=== PATIENT | female | born 1945 | race Caucasian/White ===

== ENCOUNTER 2020-11-05 10:22 | Outpatient (CLI) | payer MEDICARE ==
[2020-11-05] MEDS ORDERED: Magnevist 469MG/ML 20 ML VIAL ONE (14:13)
== END 2020-11-05 10:23 | disposition home or self-care (01) ==
LOC: MRI 10:22
PROVIDERS: ATTEND Radiology Radiation Oncology
DX: D32.0 Benign neoplasm of cerebral meninges (principal)
CPT/HCPCS: 70553; 77334; 82565; A9579

== ENCOUNTER 2022-01-14 12:21 | Outpatient (CLI) | payer MEDICARE | END 2022-01-14 12:22 | disposition home or self-care (01) | LOC: CT 12:21 | PROVIDERS: ATTEND Neurological Surgery | DX: D33.2 Benign neoplasm of brain, unspecified (principal); G93.6 Cerebral edema | CPT/HCPCS: 70470; 82565 ==

== ENCOUNTER 2022-01-29 11:42 | Outpatient (CLI) | payer MEDICARE ==
[2022-01-29 13:06] LABS: Hemoglobin 13.7 g/dL (12.0-15.5); Mean Corpuscular HGB CONC 33.3 g/dL (32.0-36.0); Mean Corpuscular Hemoglobin 29.5 pg (27.0-33.0); Mean Corpuscular Volume 88.6 fl (81.6-98.3); Mean Platelet Volume 9.5 fl (7.4-10.4); Platelet Count 269 10x3/uL (150-450); RBC Distribution Width 12.6 % (11.5-14.5); Red Blood Cell (RBC) Count 4.65 10x6/uL (3.90-5.03); White Blood Cell (WBC) Count 8.6 10x3/uL (3.5-10.5)
[2022-01-29 13:21] LABS: Anion Gap 15 mmol/L (10-20); BUN (Urea Nitrogen) 22 mg/dL (9.8-20.1); Calc. Creatinine Clearance 0 mL/min (70-130); Calcium 9.8 mg/dL (7.8-10.44); Carbon Dioxide 28 mmol/L (23-31); Chloride 104 mmol/L (98-107); Glucose 82 mg/dL (83-110); Potassium 3.7 mmol/L (3.5-5.1); Sodium 143 mmol/L (136-145)
[2022-01-29 13:37] LABS: INR-International Normal Ratio 0.9; PTT 25.5 sec (22.0-33.0); Prothrombin Time 10.3 sec (9.5-12.1)
[2022-01-30 02:04] LABS: SARS-CoV-2 PCR by NAA Not Detected (NotDetected)
== END 2022-01-29 11:43 | disposition home or self-care (01) ==
LOC: LABBT 11:42
PROVIDERS: ATTEND Neurological Surgery
DX: Z01.818 Encounter for other preprocedural examination (principal); D33.2 Benign neoplasm of brain, unspecified; Z20.822 Contact with and (suspected) exposure to COVID-19
CPT/HCPCS: 80048; 85027; 85610; 85730; 93005; U0003; U0005; 93010

== ENCOUNTER 2022-01-29 11:45 | Inpatient (IN) | payer MEDICARE ==
[2022-02-02] MEDS ORDERED: Neomycin-Polymyxin 1 ML AMP ONE ×2 (06:10→09:18)
[2022-02-02] MEDS ORDERED: Bacitracin Zinc Ointment 30 gm TUBE ONE (06:10)
[2022-02-02] MEDS ORDERED: Thrombin 5000 UNITS/5 ML VIAL ONE (06:10)
[2022-02-02] MEDS ORDERED: Lidocaine 0.5%/Epinephrine 1:200,000 50 ml Vial ONE (06:10)
[2022-02-02] MEDS ORDERED: fentaNYL Citrate/PF 100 MCG/2 ML SYRINGE ONE ×2 (06:32→12:01)
[2022-02-02] MEDS ORDERED: Albumin 5% 0 ML ONE (06:33)
[2022-02-02] MEDS ORDERED: Propofol 1,000 MG/100 ML VIAL IV ONE (06:33)
[2022-02-02] MEDS ORDERED: levETIRAcetam 500 MG/5 ML VIAL ONE (06:33)
[2022-02-02] MEDS ORDERED: hydrALAZINE 20 MG/ML VIAL SLOW IVP PRN (06:42)
[2022-02-02] MEDS ORDERED: Ondansetron PF 4 MG/2 ML Vial IVP PRN (06:42)
[2022-02-02] MEDS ORDERED: Promethazine HCl 25 MG/ML VIAL IM PRN ×2 (06:42→11:58)
[2022-02-02] MEDS ORDERED: diphenhydrAMINE 50 MG/ML VIAL IVP PRN (06:42)
[2022-02-02] MEDS ORDERED: HYDROcodone/Acetaminophen 7.5/325 mg Tablet PO PRN (06:42)
[2022-02-02] MEDS ORDERED: HYDROcodone/Acetaminophen 10/325 mg Tablet PO PRN (06:42)
[2022-02-02] MEDS ORDERED: Morphine 2 MG/ML VIAL SLOW IVP PRN (06:42)
[2022-02-02] MEDS ORDERED: Docusate 100 MG CAP PO PRN (06:42)
[2022-02-02] MEDS ORDERED: Mag-Al 1200 mg/1200 mg/30 ML UDCUP PO PRN (06:42)
[2022-02-02] MEDS ORDERED: Labetalol HCl 100 MG/20 ML VIAL SLOW IVP PRN (06:42)
[2022-02-02] MEDS ORDERED: Sodium Chloride 0.9% 100 ML ONE (06:56)
[2022-02-02] MEDS ORDERED: CEFAZOLIN 2 GM VIAL ONE (06:56)
[2022-02-02] MEDS ORDERED: ePHEDrine 50 MG/ML VIAL ONE (07:15)
[2022-02-02] MEDS ORDERED: Rocuronium Bromide 10 MG/ML (10ML VIAL) ONE (07:15)
[2022-02-02] MEDS ORDERED: Lidocaine 1% PF 5 ML VIAL ONE ×2 (07:15)
[2022-02-02] MEDS ORDERED: Ondansetron PF 4 MG/2 ML Vial ONE (07:15)
[2022-02-02] MEDS ORDERED: PROPOFOL 200 MG/20 ML VIAL ONE (07:15)
[2022-02-02] MEDS ORDERED: Dexamethasone 20 MG/5 ML VIAL ONE (07:15)
[2022-02-02] MEDS ORDERED: Vecuronium 10 MG VIAL ONE (07:15)
[2022-02-02] MEDS ORDERED: Ondansetron HCl/PF 4 MG/2 ML Vial IVP PRN (11:58)
[2022-02-02] MEDS ORDERED: Promethazine HCl 25 MG/ML VIAL IVPB PRN (11:58)
[2022-02-02 13:43] VITALS: BMI 32.3
[2022-02-02] MEDS: Sodium Chloride 0.9% 1,000 ML IV SCH ×2 (14:02→20:07)
[2022-02-02] MEDS: Hydrochlorothiazide 25 MG TAB PO SCH (14:53)
[2022-02-02] MEDS: Losartan 25 MG TAB PO SCH (14:53)
[2022-02-02] MEDS: Carvedilol 6.25 MG TAB PO SCH ×2 (14:53→19:33)
[2022-02-02] MEDS: CEFAZOLIN 2 GM in Sodium Chloride 0.9% 100 ML IVPB SCH ×2 (15:55→23:09)
[2022-02-02] MEDS: Dexamethasone 4 MG TAB PO SCH ×2 (16:03→19:34)
[2022-02-02] MEDS: levETIRAcetam 500 MG TAB PO SCH (19:34)
[2022-02-02] MEDS ORDERED: Pantoprazole 40 MG VIAL IVP SCH (21:00)
[2022-02-02] MEDS: clonazePAM 0.5 MG TAB PO PRN (23:06)
[2022-02-03] MEDS: Acetaminophen 325 MG TAB PO PRN ×3 (00:02→13:19)
[2022-02-03] MEDS: Sodium Chloride 0.9% 1,000 ML IV SCH ×3 (03:46→23:58)
[2022-02-03 03:55] LABS: #Basophils 0.1 thou/uL (0.0-0.2); #Lymphocytes 1.1 thou/uL (1.20-3.40); #Monocytes 0.6 thou/uL (0.11-0.59); #Neutrophils 12.2 thou/uL (1.40-6.50); %Basophils 0.5 % (0.0-1.0); %Eosinophils 0.1 % (0.0-10.0); %Lymphocytes 7.9 % (21.0-51.0); %Monocytes 4.1 % (0.0-10.0); %Neutrophils 87.3 % (42.0-75.0); Hemoglobin 12.9 g/dL (12.0-16.0); Mean Corpuscular HGB CONC 33.4 g/dL (32.0-36.0); Mean Corpuscular Hemoglobin 30.6 pg (27.0-31.0); Mean Corpuscular Volume 91.8 fL (78.0-98.0); Platelet Count 217 thou/uL (130-400); RBC Distribution Width 12.1 % (11.5-14.5)
[2022-02-03 04:13] LABS: Anion Gap 14 mmol/L (10-20); BUN (Urea Nitrogen) 15 mg/dL (9.8-20.1); Calc. Creatinine Clearance 77 mL/min (70-130); Carbon Dioxide 20 mmol/L (23-31); Chloride 112 mmol/L (98-107); Glucose 139 mg/dL (83-110); Potassium 3.6 mmol/L (3.5-5.1); Sodium 142 mmol/L (136-145)
[2022-02-03] MEDS: Losartan 25 MG TAB PO SCH (08:37)
[2022-02-03] MEDS: levETIRAcetam 500 MG TAB PO SCH ×2 (08:38→20:58)
[2022-02-03] MEDS: Hydrochlorothiazide 25 MG TAB PO SCH (08:38)
[2022-02-03] MEDS: Carvedilol 6.25 MG TAB PO SCH ×2 (08:38→20:58)
[2022-02-03] MEDS: Dexamethasone 4 MG TAB PO SCH ×2 (08:39→11:51)
[2022-02-03] MEDS: Dexamethasone 1 MG TAB PO SCH ×2 (17:04→20:57)
[2022-02-03] MEDS: clonazePAM 0.5 MG TAB PO PRN (20:58)
[2022-02-04 07:45] VITALS: TEMP 98.7
[2022-02-04] MEDS: levETIRAcetam 500 MG TAB PO SCH (08:21)
[2022-02-04] MEDS: Losartan 25 MG TAB PO SCH (08:21)
[2022-02-04] MEDS: Dexamethasone 1 MG TAB PO SCH (08:21)
[2022-02-04] MEDS: Carvedilol 6.25 MG TAB PO SCH (08:22)
[2022-02-04] MEDS: Hydrochlorothiazide 25 MG TAB PO SCH (08:22)
[2022-02-04 08:23] VITALS: BP 116/61
[2022-02-04] MEDS ORDERED: Dexamethasone 1 MG TAB PO SCH (17:00)
[2022-02-05] MEDS ORDERED: Dexamethasone 1 MG TAB PO SCH (17:00)
== END 2022-02-04 09:50 | disposition home or self-care (01) | DRG 27 ==
LOC: SURG A 02-02 05:41 → CCU 02-02 13:25 → SURG A 02-03 19:25
PROVIDERS: ADMIT Neurological Surgery; ATTEND Neurological Surgery
PROC: 00B10ZZ Excision of Cerebral Meninges, Open Approach (ICD-10-PCS; principal; 2022-02-02)
DX: D32.0 Benign neoplasm of cerebral meninges (principal); Z20.822 Contact with and (suspected) exposure to COVID-19; E78.00 Pure hypercholesterolemia, unspecified; I10 Essential (primary) hypertension; M06.9 Rheumatoid arthritis, unspecified; Z88.5 Allergy status to narcotic agent; Z79.899 Other long term (current) drug therapy
CPT/HCPCS: 36415; 80048; 85025; 88307; 88313; 88341; 88342; C1713; C1781; C9113; J1100; J1953; J2001; J2405; J2704; J3370; J3490; J7050; J8540; P9045